=== PATIENT | female | born 1945 | race Caucasian/White ===

== ENCOUNTER 2017-05-04 15:04 | Emergency (ER) | payer MEDICARE, BC, OTHER ==
[~2017-05-04] VITALS: Ht 152.4 cm; Wt 62.9 kg
[2017-05-04] MEDS ORDERED: FISH7.5C (15:19)
[2017-05-04] MEDS ORDERED: PANT40TA2 (15:19)
[2017-05-04] MEDS ORDERED: [UNRECOGNIZED DRUG - CODE] (15:19)
[2017-05-04] MEDS ORDERED: DULO1CAP2 (15:19)
[2017-05-04] MEDS ORDERED: ATEN50TA2 (15:19)
[2017-05-04] MEDS ORDERED: PREG50CA (15:19)
[2017-05-04] MEDS ORDERED: ALPR0.5T3 (15:19)
[2017-05-04] MEDS ORDERED: DICY20TA11 (15:19)
[2017-05-04] MEDS ORDERED: [UNRECOGNIZED DRUG - CODE] (15:19)
[2017-05-04] MEDS ORDERED: ONDANSETRON 4MG/2ML VIAL (J2405) IV ONE (15:30)
[2017-05-04] MEDS ORDERED: KETOROLAC 30 MG/ML VIAL (J1885) IV ONE (15:30)
--- NOTE | 2017-05-04 15:58 | REP ---
Clinical: Right flank pain. Comparison: 05/13/2016. Findings: Lung bases are clear. Small hiatal hernia again noted. Visualized heart and pericardium normal. Liver, spleen, pancreas, collapsed gallbladder, bilateral adrenal glands and kidneys are normal. Specifically, no perinephric stranding, hydroureteronephrosis, intrarenal or obstructing ureteral calculi are identified. The bilateral ureters to the bladder are normal. The enteric system is without obstruction or acute inflammatory process. Normal terminal ileum and appendix identified in the right lower quadrant. Pelvis demonstrates normal bladder and evidence for prior hysterectomy. No pelvic fluid or ascites. Stable 2 cm right adnexal cyst unchanged. No adenopathy. No free air. Abdominal aorta without aneurysm. Surrounding musculoskeletal structures demonstrate age-related changes without focal osseous abnormality. Impression: 1. No acute abdominopelvic pathology appreciated. 2. Small hiatal hernia. 3. Stable right adnexal cyst. Signed by Steven Rob MD 05/04/2017 03:50 P
[2017-05-04 15:59] LABS: BASO % 0.7 % (0.0-1.0); EOS # 0.2 K/mm3 (0.0-0.50); EOS % 3.3 % (0.0-3.0); LARGE UNSTAINED CELL # 0.1 K/mm3 (0.0-0.4); LARGE UNSTAINED CELL % 1.6 % (0.0-4.0); LYMPH # 1.8 K/mm3 (1.5-4.5); LYMPH % 28.6 % (24.0-44.0); MEAN CORPUSCULAR HEMOGLOBIN 30.8 pg (27.0-33.0); MEAN CORPUSCULAR HGB CONC 33.5 g/dl (32.0-36.5); MEAN CORPUSCULAR VOLUME 91.9 fl (80.0-96.0); MONO # 0.5 K/mm3 (0.0-0.8); MONO % 8.9 % (0.0-5.0); NEUTROPHILS # 3.4 K/mm3 (1.8-7.7); PLATELET COUNT, AUTOMATED 195 k/mm3 (150-450); RED CELL DISTRIBUTION WIDTH 13.1 % (11.5-14.5)
[2017-05-04 16:23] LABS: ALBUMIN 3.8 GM/DL (3.2-5.2); ALBUMIN/GLOBULIN RATIO 1.09 (1.00-1.93); ALKALINE PHOSPHATASE 100 U/L (45-117); ALT/SGPT 40 U/L (12-78); ANION GAP 4 MEQ/L (8-16); AST/SGOT 22 U/L (15-37); BILIRUBIN,DIRECT < 0.1 MG/DL (0.0-0.2); BILIRUBIN,TOTAL 0.2 MG/DL (0.2-1.0); BLOOD UREA NITROGEN 18 MG/DL (7-18); CALCIUM LEVEL 9.4 MG/DL (8.8-10.2); CARBON DIOXIDE LEVEL 33 MEQ/L (21-32); CHLORIDE LEVEL 108 MEQ/L (98-107); CREATININE FOR GFR 1.13 MG/DL (0.55-1.02); GLOMERULAR FILTRATION RATE 50.4 (>39); GLUCOSE, FASTING 103 MG/DL (83-110); POTASSIUM SERUM 4.1 MEQ/L (3.5-5.1); SODIUM LEVEL 145 MEQ/L (136-145); TOTAL PROTEIN 7.3 GM/DL (6.4-8.2)
[2017-05-04 16:50] VITALS: BP 159/77
[2017-05-04] MEDS ORDERED: CYCL10TA PO (16:55)
[2017-05-04] MEDS ORDERED: CIPR-250 PO (16:55)
[2017-05-04] MEDS ORDERED: NAPR500T PO (16:55)
== END 2017-05-04 17:03 | disposition home or self-care (01) ==
LOC: M ED 15:04
DX: N39.0 Urinary tract infection, site not specified (principal); M54.9 Dorsalgia, unspecified; I10 Essential (primary) hypertension; F17.210 Nicotine dependence, cigarettes, uncomplicated
CPT/HCPCS: 36415; 74176; 80048; 80076; 81001; 83690; 85025; 87086; 96374; 96375; 99283; J1885; J2405

== ENCOUNTER → 2022-03-27 | Outpatient (CLI) | payer MEDICARE, BC, OTHER ==
[~2022-03-27] MED LIST: ALPR0.5T3; ATEN50TA2; CIPR-250 PO; CYCL-707 PO; DICY20TA20; DULO1CAP5; FISH7.5C; GLUC100016; NAPR-837 PO; PANT40TA29; PREG50CA; [UNRECOGNIZED DRUG - CODE]
[2022-03-27 12:54] LABS: BASO % 0.5 % (0.0-1.0); EOS # 0.1 10^3/uL (0.0-0.5); EOS % 0.8 % (0.0-3.0); HEMATOCRIT 46.6 % (36.0-47.0); HEMOGLOBIN 15.2 g/dl (12.0-15.5); LYMPH # 1.2 10^3/uL (1.5-5.0); LYMPH % 14.8 % (24.0-44.0); MEAN CORPUSCULAR HEMOGLOBIN 30.2 pg (27.0-33.0); MEAN CORPUSCULAR HGB CONC 32.6 g/dl (32.0-36.5); MEAN CORPUSCULAR VOLUME 92.6 fl (80.0-96.0); MONO # 0.6 10^3/uL (0.0-0.8); MONO % 7.1 % (2.0-8.0); NEUTROPHILS % 76.3 % (36.0-66.0); PLATELET COUNT, AUTOMATED 227 10^3/uL (150-450); RED BLOOD COUNT 5.03 10^6/uL (4.00-5.40); WHITE BLOOD COUNT 7.9 10^3/uL (4.0-10.0)
[2022-03-27 13:03] LABS: ALBUMIN 3.9 GM/DL (3.2-5.2); BILIRUBIN,TOTAL 0.3 MG/DL (0.2-1.0); CALCIUM LEVEL 9.8 MG/DL (8.8-10.2); CREATININE FOR GFR 1.05 MG/DL (0.55-1.30); GLOMERULAR FILTRATION RATE 54.2 (>39); POTASSIUM SERUM 4.6 MEQ/L (3.5-5.1); TOTAL PROTEIN 7.2 GM/DL (6.4-8.2)
== END ==
LOC: M WUC 11:00
PROVIDERS: ATTEND Physician Assistant
DX: R10.30 Lower abdominal pain, unspecified (principal)

== ENCOUNTER → 2022-03-27 | Outpatient (CLI) | payer MEDICARE, BC, OTHER ==
[~2022-03-27] MED LIST changes: +GASTROGRAFIN SOLUTION 30ML (Q9963) As Ordered ONE; +ISOVUE-370 76% 100ML VIAL As Ordered ONE
== END ==
LOC: M RAD 13:10
PROVIDERS: ATTEND Physician Assistant
DX: K44.9 Diaphragmatic hernia without obstruction or gangrene (principal); N83.201 Unspecified ovarian cyst, right side; M51.36 Other intervertebral disc degeneration, lumbar region; K57.30 Diverticulosis of large intestine without perforation or abscess without bleeding; R10.30 Lower abdominal pain, unspecified
CPT/HCPCS: 36415; 74021; 74178; 80053; 82150; 83690; 85025; 87086; Q9963; Q9967

== ENCOUNTER 2022-06-18 13:41 | Emergency (ER) | payer MEDICARE, BC, OTHER ==
[~2022-06-18] VITALS: Ht 154.9 cm; Wt 53.8 kg
[~2022-06-18 13:41] MED LIST changes: +FISH10005; -FISH7.5C; -GASTROGRAFIN SOLUTION 30ML (Q9963) As Ordered ONE; -ISOVUE-370 76% 100ML VIAL As Ordered ONE
[2022-06-18] MEDS ORDERED: KETOROLAC 30 MG/ML 1ML VIAL IV ONE (16:35)
[2022-06-18] MEDS ORDERED: ONDANSETRON 4MG 2ML VIAL IV ONE (16:35)
[2022-06-18] MEDS ORDERED: NS 1,000 ML IV ONE (16:35)
[2022-06-18] MEDS ORDERED: ISOVUE-370 76% 100ML VIAL As Ordered ONE (17:00)
[2022-06-18 17:39] LABS: BACTERIA, URINE SMALL AMOUNT; HYALINE CAST, URINE NONE SEEN /lpf (0-1); MUCUS, URINE SMALL AMOUNT (NEGATIVE); RBC, URINE 0-1 /hpf (0-3); SQUAMOUS EPITHELIAL CELL URINE SMALL AMOUNT /hpf (SMALL AMT)
[2022-06-18 17:45] LABS: BASO # 0.1 10^3/uL (0.0-0.2); BASO % 0.8 % (0.0-1.0); EOS % 0.6 % (0.0-3.0); HEMATOCRIT 47.6 % (36.0-47.0); HEMOGLOBIN 15.5 g/dl (12.0-15.5); LYMPH # 1.3 10^3/uL (1.5-5.0); MEAN CORPUSCULAR HEMOGLOBIN 29.6 pg (27.0-33.0); MEAN CORPUSCULAR HGB CONC 32.6 g/dl (32.0-36.5); MONO # 0.6 10^3/uL (0.0-0.8); MONO % 8.6 % (2.0-8.0); NEUTROPHILS # 4.6 10^3/uL (1.5-8.5); NEUTROPHILS % 69.8 % (36.0-66.0); PLATELET COUNT, AUTOMATED 221 10^3/uL (150-450); RED BLOOD COUNT 5.23 10^6/uL (4.00-5.40); WHITE BLOOD COUNT 6.5 10^3/uL (4.0-10.0)
[2022-06-18 17:52] LABS: ALBUMIN 4.1 GM/DL (3.2-5.2); BILIRUBIN,DIRECT 0.2 MG/DL (0.0-0.2); BILIRUBIN,TOTAL 0.6 MG/DL (0.2-1.0); TOTAL PROTEIN 7.8 GM/DL (6.4-8.2)
[2022-06-18] MEDS ORDERED: CIPR-249 PO (18:14)
[2022-06-18] MEDS ORDERED: CIPROFLOXACIN 500MG TABLET PO ONE (18:20)
[2022-06-18 18:29] VITALS: BP 148/70
== END 2022-06-18 18:30 | disposition home or self-care (01) ==
LOC: M ED 13:41
DX: N39.0 Urinary tract infection, site not specified (principal); F41.9 Anxiety disorder, unspecified; Z87.19 Personal history of other diseases of the digestive system; Z79.899 Other long term (current) drug therapy; Z88.1 Allergy status to other antibiotic agents; Z88.2 Allergy status to sulfonamides; Z88.5 Allergy status to narcotic agent; Z88.8 Allergy status to other drugs, medicaments and biological substances; Z91.018 Allergy to other foods
CPT/HCPCS: 36415; 74177; 80047; 80076; 81000; 83690; 85025; 87086; 96361; 96374; 96375; 99284; J1885; J2405; Q9967

== ENCOUNTER 2023-02-13 08:11 | Inpatient (IN) | payer MEDICARE, BC, OTHER ==
[~2023-02-13] VITALS: Ht 154.9 cm; Wt 49.7 kg
[~2023-02-13 08:11] MED LIST changes: -ATEN50TA2; +ATEN50TA2 PO; +CIPR-249 PO; -DICY20TA20; +DICY20TA20 PO; -DULO1CAP5; +DULO1CAP5 PO; -FISH10005; +FISH10005 PO; -GLUC100016; +GLUC100016 PO; -PANT40TA29; +PANT40TA29 PO
[2023-02-13] MEDS ORDERED: NS 500 ML IV ONE (08:20)
[2023-02-13] MEDS ORDERED: ISOVUE-370 76% 100ML VIAL As Ordered ONE (08:41)
[2023-02-13 08:54] LABS: BASO % 0.3 % (0.0-1.0); EOS % 0.1 % (0.0-3.0); HEMATOCRIT 41.2 % (36.0-47.0); HEMOGLOBIN 13.5 g/dl (12.0-15.5); LYMPH # 1.2 10^3/uL (1.5-5.0); LYMPH % 11.1 % (24.0-44.0); MEAN CORPUSCULAR HEMOGLOBIN 30.1 pg (27.0-33.0); MEAN CORPUSCULAR HGB CONC 32.8 g/dl (32.0-36.5); MEAN CORPUSCULAR VOLUME 91.8 fl (80.0-96.0); MONO # 1.2 10^3/uL (0.0-0.8); MONO % 11.4 % (2.0-8.0); NEUTROPHILS % 76.7 % (36.0-66.0); PLATELET COUNT, AUTOMATED 169 10^3/uL (150-450); RED BLOOD COUNT 4.49 10^6/uL (4.00-5.40); WHITE BLOOD COUNT 10.5 10^3/uL (4.0-10.0)
[2023-02-13 09:15] LABS: LIPASE 31 U/L (12-53)
[2023-02-13 09:16] LABS: INR 1.03; PARTIAL THROMBOPLASTIN TIME 24.1 SECONDS (24.8-34.2); PROTHROMBIN TIME 13.7 SECONDS (12.5-14.5)
[2023-02-13 09:17] LABS: ALBUMIN 3.7 G/DL (3.2-5.2); ALKALINE PHOSPHATASE 74 U/L (46-116); ALT/SGPT 19 U/L (7.0-40); AST/SGOT 19 U/L (<34); BILIRUBIN,DIRECT 0.3 MG/DL (<0.4); BILIRUBIN,TOTAL 0.6 MG/DL (0.3-1.2); CK-MB VALUE MASS < 1.0 NG/ML (<3.6); CPK CREATINE PHOSPHOKINASE 52 U/L (34-145); MB/CK RELATIVE INDEX 1.92 (< OR =4); TOTAL PROTEIN 6.6 G/DL (5.7-8.2)
[2023-02-13] MEDS ORDERED: DICY10CA13 PO (09:23)
[2023-02-13] MEDS ORDERED: METF500T13 PO (09:23)
[2023-02-13] MEDS ORDERED: ATOR1TAB21 PO (09:23)
[2023-02-13] MEDS ORDERED: DICY10IN2 IM (09:23)
[2023-02-13] MEDS ORDERED: PREG50CA2 PO (09:23)
[2023-02-13] MEDS ORDERED: NATE60TA13 PO (09:23)
[2023-02-13 09:24] LABS: RSV AMPLIFICATION NEGATIVE (NEGATIVE)
[2023-02-13 10:00] LABS: CK-MB VALUE MASS < 1.0 NG/ML (<3.6)
[2023-02-13 10:05] LABS: CPK CREATINE PHOSPHOKINASE 40 U/L (34-145)
[2023-02-13] MEDS ORDERED: CLOPIDOGREL 300 MG TAB (PLAVIX) PO STA (10:34)
[2023-02-13] MEDS ORDERED: CHLORASEPTIC SPRAY MT PRN (11:20)
[2023-02-13] MEDS ORDERED: DEXTROSE 50% 50ML SYRINGE IV PRN (11:25)
[2023-02-13] MEDS ORDERED: GLUCAGON INJ 1MG VIAL SC PRN (11:25)
[2023-02-13] MEDS ORDERED: GLUCOSE 4GM CHEW TABLET PO PRN (11:25)
[2023-02-13 11:39] LABS: CHOLESTEROL LEVEL 91 MG/DL (<200); CHOLESTEROL RISK RATIO 1.65 (<5); LDL CHOLESTEROL 25.8 MG/DL (<100); TRIGLYCERIDES LEVEL 51 MG/DL (<150)
[2023-02-13 11:53] LABS: HEMOGLOBIN A1c 6.6 % (4.0-6.0)
[2023-02-13] MEDS: INSULIN LISPRO (NovoLOG) PER UNIT SC SCH ×2 (12:00→16:43)
[2023-02-13] MEDS ORDERED: HOME MED LIST COMPLETE! XX SCH (12:00)
[2023-02-13] MEDS: ENOXAPARIN 40MG/0.4ML SYRINGE (J1650 PER 10MG) SC SCH (12:19)
[2023-02-13 14:20] VITALS: BP 132/63
[2023-02-13 16:31] VITALS: BP 146/70
[2023-02-13] MEDS: DULoxetine 30MG CAPSULE (CYMBALTA) PO SCH (17:46)
[2023-02-13] MEDS: PANTOPRAZOLE 40MG TAB (PROTONIX) PO SCH (17:46)
[2023-02-13 20:00] VITALS: BP 106/64
[2023-02-13] MEDS: ATORVASTATIN 20 MG TAB PO SCH (21:11)
[2023-02-13] MEDS: PREGABALIN 50 MG CAP (LYRICA) PO SCH (21:11)
[2023-02-13 23:52] VITALS: BP 130/62
[2023-02-14 03:53] VITALS: BP 133/63
[2023-02-14 05:33] LABS: HEMATOCRIT 35.3 % (36.0-47.0); HEMOGLOBIN 11.6 g/dl (12.0-15.5); MEAN CORPUSCULAR HEMOGLOBIN 29.9 pg (27.0-33.0); MEAN CORPUSCULAR HGB CONC 32.9 g/dl (32.0-36.5); PLATELET COUNT, AUTOMATED 159 10^3/uL (150-450); RED BLOOD COUNT 3.88 10^6/uL (4.00-5.40); WHITE BLOOD COUNT 6.3 10^3/uL (4.0-10.0)
[2023-02-14 05:53] LABS: BLOOD UREA NITROGEN 18 MG/DL (9-23); CALCIUM LEVEL 8.4 MG/DL (8.3-10.6); CARBON DIOXIDE LEVEL 27 MMOL/L (20-31); CHLORIDE LEVEL 108 MMOL/L (98-107); CREATININE FOR GFR 0.79 MG/DL (0.55-1.30); GLOMERULAR FILTRATION RATE > 60.0 (>39); GLUCOSE, FASTING 110 MG/DL (74-106); SODIUM LEVEL 141 MMOL/L (136-145)
[2023-02-14] MEDS: INSULIN LISPRO (NovoLOG) PER UNIT SC SCH ×3 (07:30→16:50)
[2023-02-14 07:45] VITALS: BP 136/72
[2023-02-14] MEDS: PANTOPRAZOLE 40MG TAB (PROTONIX) PO SCH (08:36)
[2023-02-14] MEDS: PREGABALIN 50 MG CAP (LYRICA) PO SCH ×2 (08:36→20:18)
[2023-02-14] MEDS: CLOPIDOGREL 75 MG TAB PO SCH (08:36)
[2023-02-14] MEDS: atenoloL 50 MG TAB PO SCH (08:36)
[2023-02-14] MEDS: DULoxetine 30MG CAPSULE (CYMBALTA) PO SCH (08:36)
[2023-02-14] MEDS: ENOXAPARIN 40MG/0.4ML SYRINGE (J1650 PER 10MG) SC SCH (08:36)
[2023-02-14 15:17] VITALS: BP 145/72
[2023-02-14 19:50] VITALS: BP 163/84
[2023-02-14] MEDS: ATORVASTATIN 20 MG TAB PO SCH (20:18)
[2023-02-15 03:55] VITALS: BP 124/65
[2023-02-15 07:36] LABS: BASO % 0.4 % (0.0-1.0); EOS # 0.1 10^3/uL (0.0-0.5); EOS % 1.6 % (0.0-3.0); HEMATOCRIT 39.2 % (36.0-47.0); LYMPH # 1.6 10^3/uL (1.5-5.0); LYMPH % 35.7 % (24.0-44.0); MEAN CORPUSCULAR HEMOGLOBIN 30.2 pg (27.0-33.0); MEAN CORPUSCULAR HGB CONC 33.2 g/dl (32.0-36.5); MONO # 0.7 10^3/uL (0.0-0.8); MONO % 14.6 % (2.0-8.0); NEUTROPHILS # 2.1 10^3/uL (1.5-8.5); NEUTROPHILS % 47.5 % (36.0-66.0); PLATELET COUNT, AUTOMATED 177 10^3/uL (150-450); RED BLOOD COUNT 4.31 10^6/uL (4.00-5.40); WHITE BLOOD COUNT 4.5 10^3/uL (4.0-10.0)
[2023-02-15 08:00] LABS: BLOOD UREA NITROGEN 19 MG/DL (9-23); CALCIUM LEVEL 8.7 MG/DL (8.3-10.6); CARBON DIOXIDE LEVEL 28 MMOL/L (20-31); CHLORIDE LEVEL 105 MMOL/L (98-107); CREATININE FOR GFR 0.73 MG/DL (0.55-1.30); GLOMERULAR FILTRATION RATE > 60.0 (>39); GLUCOSE, FASTING 98 MG/DL (74-106); SODIUM LEVEL 141 MMOL/L (136-145)
[2023-02-15 08:36] VITALS: BP 156/72
[2023-02-15] MEDS: INSULIN LISPRO (NovoLOG) PER UNIT SC SCH ×3 (08:49→16:43)
[2023-02-15] MEDS: DULoxetine 30MG CAPSULE (CYMBALTA) PO SCH (08:50)
[2023-02-15] MEDS: PANTOPRAZOLE 40MG TAB (PROTONIX) PO SCH (08:50)
[2023-02-15] MEDS: atenoloL 50 MG TAB PO SCH (08:51)
[2023-02-15] MEDS: ENOXAPARIN 40MG/0.4ML SYRINGE (J1650 PER 10MG) SC SCH (08:51)
[2023-02-15] MEDS: PREGABALIN 50 MG CAP (LYRICA) PO SCH ×2 (08:51→20:34)
[2023-02-15] MEDS: CLOPIDOGREL 75 MG TAB PO SCH (08:51)
[2023-02-15 14:24] VITALS: BP 154/80
[2023-02-15 14:46] VITALS: BP 150/78
[2023-02-15] MEDS: ATORVASTATIN 20 MG TAB PO SCH (20:34)
[2023-02-15 20:53] VITALS: BP 138/77
[2023-02-16 05:58] VITALS: BP 135/74
[2023-02-16 07:11] LABS: HEMATOCRIT 38.1 % (36.0-47.0); HEMOGLOBIN 12.4 g/dl (12.0-15.5); MEAN CORPUSCULAR HEMOGLOBIN 29.6 pg (27.0-33.0); MEAN CORPUSCULAR HGB CONC 32.5 g/dl (32.0-36.5); MEAN CORPUSCULAR VOLUME 90.9 fl (80.0-96.0); PLATELET COUNT, AUTOMATED 176 10^3/uL (150-450); RED BLOOD COUNT 4.19 10^6/uL (4.00-5.40); WHITE BLOOD COUNT 4.2 10^3/uL (4.0-10.0)
[2023-02-16 07:32] LABS: BLOOD UREA NITROGEN 16 MG/DL (9-23); CALCIUM LEVEL 8.6 MG/DL (8.3-10.6); CARBON DIOXIDE LEVEL 30 MMOL/L (20-31); CHLORIDE LEVEL 107 MMOL/L (98-107); CREATININE FOR GFR 0.82 MG/DL (0.55-1.30); GLOMERULAR FILTRATION RATE > 60.0 (>39); GLUCOSE, FASTING 111 MG/DL (74-106); POTASSIUM SERUM 4.5 MMOL/L (3.5-5.1); SODIUM LEVEL 142 MMOL/L (136-145)
[2023-02-16] MEDS: ENOXAPARIN 40MG/0.4ML SYRINGE (J1650 PER 10MG) SC SCH (08:13)
[2023-02-16] MEDS: PANTOPRAZOLE 40MG TAB (PROTONIX) PO SCH (08:13)
[2023-02-16] MEDS: DULoxetine 30MG CAPSULE (CYMBALTA) PO SCH (08:13)
[2023-02-16] MEDS: INSULIN LISPRO (NovoLOG) PER UNIT SC SCH (08:13)
[2023-02-16] MEDS: PREGABALIN 50 MG CAP (LYRICA) PO SCH (08:14)
[2023-02-16 08:16] VITALS: BP 144/90
[2023-02-16] MEDS: atenoloL 50 MG TAB PO SCH (08:16)
[2023-02-16] MEDS ORDERED: ATOR1TAB21 PO (11:04)
== END 2023-02-16 12:58 | disposition home or self-care (01) | DRG 308 ==
LOC: EDBD 08:11 → M ED 08:11 → M ED INP 08:12 → M PCU 13:54 → OBSVTOIN 02-14 08:21 → M MSPAV 02-15 14:34
PROVIDERS: ADMIT Internal Medicine; ATTEND Internal Medicine
PROC: B246ZZZ Ultrasonography of Right and Left Heart (ICD-10-PCS; principal; 2023-02-14)
DX: I47.20 Ventricular tachycardia, unspecified (principal); U07.1 COVID-19; R55 Syncope and collapse; I10 Essential (primary) hypertension; E11.40 Type 2 diabetes mellitus with diabetic neuropathy, unspecified; E78.5 Hyperlipidemia, unspecified; F32.A Depression, unspecified; F41.9 Anxiety disorder, unspecified; K21.9 Gastro-esophageal reflux disease without esophagitis; F39 Unspecified mood [affective] disorder; Z79.84 Long term (current) use of oral hypoglycemic drugs; Z79.899 Other long term (current) drug therapy; Z88.1 Allergy status to other antibiotic agents; Z88.2 Allergy status to sulfonamides; Z88.5 Allergy status to narcotic agent; Z88.6 Allergy status to analgesic agent; Z88.8 Allergy status to other drugs, medicaments and biological substances; Z91.048 Other nonmedicinal substance allergy status; Z28.310 Unvaccinated for COVID-19